=== PATIENT | female | born 1995 | race Two or more races ===

== ENCOUNTER → 2018-04-20 | Outpatient (CLI) | payer BC | END | disposition home or self-care (01) | LOC: HKI 11:13 | DX: M25.561 Pain in right knee (principal) | CPT/HCPCS: 73562; 73562-50 ==

== ENCOUNTER → 2018-06-01 | Outpatient (CLI) | payer BC | END | disposition home or self-care (01) | LOC: HKI 11:23 | DX: M25.561 Pain in right knee (principal); S83.004D Unspecified dislocation of right patella, subsequent encounter; X58.XXXD Exposure to other specified factors, subsequent encounter | CPT/HCPCS: G0463 ==